=== PATIENT | female | born 1995 | race Two or more races ===

== ENCOUNTER 2018-10-24 20:16 | Emergency (ER) | payer MEDICAID ==
[~2018-10-24] VITALS: Ht 149.9 cm; Wt 57.2 kg
[2018-10-24 20:37] VITALS: BP 113/65
[2018-10-24 20:59] LABS: Urine Bacteria NONE SEEN /hpf (None Seen); Urine Blood Negative /uL (Negative); Urine Mucus FEW (None Seen); Urine Specific Gravity 1.026 (1.001-1.035); Urine WBC 2 /hpf (0 - 5)
[2018-10-24] MEDS ORDERED: cefTRIAXone SOD 1,000 MG VL IM ONE (22:45)
== END 2018-10-24 23:20 | disposition home or self-care (01) ==
LOC: ER 20:20
DX: N39.0 Urinary tract infection, site not specified (principal)
CPT/HCPCS: 81001; 81025; 96372; 99283; J0696

== ENCOUNTER 2019-04-13 09:40 | Day surgery (SDC) | payer MEDICAID ==
[2019-04-10 08:56] LABS: Hemoglobin 9.6 g/dL (12.2-16.2); Nucleated Red Blood Cells % 0.1 %; White Blood Cell 7.8 10^3/uL (4.4-10.8)
[2019-04-10 08:58] LABS: Basophils # (auto) 0.1 uL; Basophils % (auto) 0.7 % (0.0-2.0); Eosinophils # (auto) 0 uL; Eosinophils % (auto) 0.6 % (0.0-7.0); Hematocrit 32.5 % (36.0-46.0); Lymphocytes # (auto) 2.4 uL; Lymphocytes % (auto) 30.4 % (10.0-50.0); Mean Corpuscular Hemoglobin 20.5 pg (28.0-32.0); Mean Corpuscular Hgb Conc. 29.6 g/dL (32.0-36.0); Mean Corpuscular Volume 69.2 fL (80.0-100.0); Monocytes % (auto) 12.4 % (0.0-12.0); Neutrophils # (auto) 4.4 uL; Neutrophils % (auto) 55.9 % (37.0-80.0); Platelet Count (auto) 371 10^3/uL (140-450); Red Cell Distribution Width 18.2 % (11.8-14.3)
[2019-04-10 09:16] LABS: INR 0.93 (0.9-1.15); Partial Thromboplastin Time 23.5 sec (23.64-32.05)
[~2019-04-13] VITALS: Ht 147.3 cm; Wt 59.0 kg
[~2019-04-13 09:40] MED LIST: FLUMAZENIL 0.1 MG/ML INJ 10ML MDV IV ONE; LAMO150T26 PO; LIDOCAINE VISCOUS 2% 15ML UD ONE; NALOXONE HCL 0.4 MG/ML VIAL ONE; PRE5T PO; SIMETHICONE 40 MG/0.6 ML ORAL DROP ONE; SODIUM CHLORIDE LOCK 10 ML ONE; diphenhdrAMINE HCL 50 MG/1 ML VL ONE
[2019-04-13] MEDS: MIDAZOLAM HCL 5 MG/ML-1ML VIAL ONE ×3 (10:01→10:12)
[2019-04-13] MEDS: fentaNYL CITRATE 100 MCG/2 ML VL ONE ×3 (10:01→10:12)
[2019-04-13 11:00] VITALS: BP 107/73
== END 2019-04-13 11:18 | disposition home or self-care (01) ==
LOC: EDUNIT# → SUR 09:40
PROVIDERS: ATTEND Internal Medicine Gastroenterology
DX: Z12.11 Encounter for screening for malignant neoplasm of colon (principal); K29.50 Unspecified chronic gastritis without bleeding; K29.80 Duodenitis without bleeding; K52.89 Other specified noninfective gastroenteritis and colitis; K52.839 Microscopic colitis, unspecified; D64.9 Anemia, unspecified; Z79.899 Other long term (current) drug therapy; Z98.890 Other specified postprocedural states
CPT/HCPCS: 36415; 43239; 45380; 84702; 85025; 85610; 85730; 88305; 88342; J1200; J2250; J3010; J7030; 99152

== ENCOUNTER 2022-04-07 13:16 | Day surgery (SDC) | payer MEDICAID ==
[2022-04-06 10:57] LABS: Basophils # (auto) 0 10 ^3/uL (0-0.2); Basophils % (auto) 0.6 % (0.0-2.0); Eosinophils # (auto) 0.1 10 ^3/uL (0-0.8); Hematocrit 39.8 % (36.0-46.0); Hemoglobin 12.8 g/dL (12.2-16.2); Lymphocytes # (auto) 1.6 10 ^3/uL (0.4-5.4); Lymphocytes % (auto) 26.6 % (10.0-50.0); Mean Corpuscular Hgb Conc. 32.2 g/dL (32.0-36.0); Mean Corpuscular Volume 86.9 fL (80.0-100.0); Monocytes # (auto) 0.6 10 ^3/uL (0-1.3); Neutrophils # (auto) 3.9 10 ^3/uL (1.6-8.6); Neutrophils % (auto) 62.8 % (37.0-80.0); Red Blood Cells 4.58 10^6/uL (4.0-5.20); Red Cell Distribution Width 15.8 % (11.8-14.3); White Blood Cell 6.2 10^3/uL (4.4-10.8)
[2022-04-06 11:17] LABS: INR 0.99 (0.9-1.15); Partial Thromboplastin Time 27.9 sec (23.6-33.0)
[2022-04-06 11:24] LABS: Albumin 3.3 g/dL (3.4-5.0); Calcium 8.2 mg/dL (8.5-10.1); Potassium 4.1 mmol/L (3.5-5.1)
[2022-04-06 11:29] LABS: BUN/Creatinine Ratio 18.3; Bilirubin, Total 0.2 mg/dL (0.2-1.0)
[~2022-04-07] VITALS: Ht 149.9 cm; Wt 68.0 kg
[~2022-04-07 13:16] MED LIST changes: +CHOL400C12 PO; -FLUMAZENIL 0.1 MG/ML INJ 10ML MDV IV ONE; -LAMO150T26 PO; -NALOXONE HCL 0.4 MG/ML VIAL ONE; -PRE5T PO; -SIMETHICONE 40 MG/0.6 ML ORAL DROP ONE; -diphenhdrAMINE HCL 50 MG/1 ML VL ONE
[2022-04-07] MEDS: fentaNYL CITRATE 100 MCG/2 ML VL ONE ×2 (14:02→14:06)
[2022-04-07] MEDS: diphenhdrAMINE HCL 50 MG/1 ML VL ONE ×2 (14:02→14:05)
[2022-04-07] MEDS: MIDAZOLAM HCL 5 MG/ML-1ML VIAL ONE ×2 (14:02→14:06)
[2022-04-07 14:50] VITALS: BP 111/70
== END 2022-04-07 15:29 | disposition home or self-care (01) ==
LOC: GI 13:16
PROVIDERS: ATTEND Internal Medicine Gastroenterology
DX: R10.9 Unspecified abdominal pain (principal); K29.50 Unspecified chronic gastritis without bleeding; K29.90 Gastroduodenitis, unspecified, without bleeding; K44.9 Diaphragmatic hernia without obstruction or gangrene; Z98.890 Other specified postprocedural states; Z87.19 Personal history of other diseases of the digestive system; Z79.899 Other long term (current) drug therapy; Z20.822 Contact with and (suspected) exposure to COVID-19
CPT/HCPCS: 36415; 43239; 80053; 84702; 85025; 85610; 85730; 88305; 88342; J1200; J2250; J3010; J7030; U0003; 99152

== ENCOUNTER → 2022-04-20 | Outpatient (CLI) | payer MEDICAID ==
[~2022-04-20] MED LIST changes: -LIDOCAINE VISCOUS 2% 15ML UD ONE; -SODIUM CHLORIDE LOCK 10 ML ONE
[2022-04-20 10:34] LABS: Urine Bacteria FEW /hpf (None Seen); Urine Blood Negative /uL (Negative); Urine Mucus FEW (None Seen); Urine Specific Gravity 1.023 (1.001-1.035); Urine WBC 2 /hpf (0 - 5)
== END | disposition home or self-care (01) ==
LOC: LAB 10:11
PROVIDERS: ATTEND Nurse Practitioner Family
DX: N39.0 Urinary tract infection, site not specified (principal)
CPT/HCPCS: 81001; 87086

== ENCOUNTER 2022-05-12 11:48 | Outpatient (CLI) | payer MEDICAID ==
[~2022-05-12] VITALS: Ht 149.9 cm; Wt 68.0 kg
[2022-05-12 12:03] LABS: Basophils # (auto) 0 10 ^3/uL (0-0.2); Basophils % (auto) 0.6 % (0.0-2.0); Eosinophils # (auto) 0 10 ^3/uL (0-0.8); Eosinophils % (auto) 0.8 % (0.0-7.0); Hematocrit 38.2 % (36.0-46.0); Hemoglobin 12.4 g/dL (12.2-16.2); Lymphocytes # (auto) 1.7 10 ^3/uL (0.4-5.4); Lymphocytes % (auto) 29.8 % (10.0-50.0); Mean Corpuscular Hgb Conc. 32.5 g/dL (32.0-36.0); Mean Corpuscular Volume 86.3 fL (80.0-100.0); Monocytes # (auto) 0.4 10 ^3/uL (0-1.3); Monocytes % (auto) 7.6 % (0.0-12.0); Neutrophils # (auto) 3.5 10 ^3/uL (1.6-8.6); Neutrophils % (auto) 61.2 % (37.0-80.0); Nucleated Red Blood Cells % 0.1 %; Red Blood Cells 4.42 10^6/uL (4.0-5.20); Red Cell Distribution Width 14.7 % (11.8-14.3); White Blood Cell 5.7 10^3/uL (4.4-10.8)
[2022-05-12 12:19] LABS: INR 0.92 (0.9-1.15); Partial Thromboplastin Time 27.2 sec (24.6-33.4)
[2022-05-12 12:56] LABS: Albumin 3.2 g/dL (3.4-5.0); Calcium 8.5 mg/dL (8.5-10.1)
[2022-05-12 13:02] LABS: BUN/Creatinine Ratio 16.4; Bilirubin, Total 0.4 mg/dL (0.2-1.0)
[2022-05-12] MEDS ORDERED: METF-370 PO (15:36)
== END 2022-05-12 11:57 | disposition home or self-care (01) ==
LOC: LAB 11:48 → EDSTATUS 05-14 06:47
PROVIDERS: ATTEND Internal Medicine Gastroenterology
DX: K52.9 Noninfective gastroenteritis and colitis, unspecified (principal); K51.00 Ulcerative (chronic) pancolitis without complications; Z53.8 Procedure and treatment not carried out for other reasons; Z20.822 Contact with and (suspected) exposure to COVID-19
CPT/HCPCS: 36415; 80053; 85025; 85610; 85730; U0003; 84702

== ENCOUNTER 2023-03-18 06:29 | Inpatient (IN) | payer MEDICAID ==
[~2023-03-18] VITALS: Ht 147.3 cm; Wt 79.4 kg
[~2023-03-18 06:29] MED LIST changes: +METF-370 PO
[2023-03-18] MEDS ORDERED: AZITHROMYCIN 250 MG TAB PO ONE (07:15)
[2023-03-18] MEDS ORDERED: BETAMETHASONE ACET (30mg/5ml) 5ml Vial 6mg/ml IM ONE ×2 (07:15)
[2023-03-18] MEDS ORDERED: MAGNESIUM SULFATE 100 ML IV ONE (07:15)
[2023-03-18] MEDS ORDERED: MAGNESIUM SULFATE 40MG/ML 1,000 ML IV SCH (07:15)
[2023-03-18] MEDS ORDERED: AMPICILLIN SOD 2GM INJ 2 GM in SODIUM CHL 0.9% 100 ML IV ONE (07:15)
[2023-03-18 07:33] LABS: Alcohol, Urine < 3.0 mg/dL (0-10); Amphetamine Screen, Urine NEGATIVE (NEGATIVE); Barbiturate Scree,Urine NEGATIVE (NEGATIVE); Benzodiazephine Screen, Urine NEGATIVE (NEGATIVE); Cannabinoid Screen, Urine NEGATIVE (NEGATIVE); Cocaine Screen, Urine NEGATIVE (NEGATIVE); Opiate Scree,Urine NEGATIVE (NEGATIVE); Phencyclidine Screen, Urine NEGATIVE (NEGATIVE)
[2023-03-18] MEDS ORDERED: LACTATED RINGER'S 1,000 ML IV ONE (07:41)
[2023-03-18 07:53] LABS: Urine Bacteria MOD /hpf (None Seen); Urine Blood Negative /uL (Negative); Urine Mucus FEW (None Seen); Urine Specific Gravity 1.014 (1.001-1.035); Urine WBC 4 /hpf (0 - 5)
== END 2023-03-18 08:11 | disposition short-term general hospital (02) | DRG 566 ==
LOC: LDRP 06:29 → OBSVTOIN 07:04
PROVIDERS: ADMIT Obstetrics & Gynecology; ATTEND Obstetrics & Gynecology
DX: O42.913 Preterm premature rupture of membranes, unspecified as to length of time between rupture and onset of labor, third trimester (principal); Z3A.31 31 weeks gestation of pregnancy
CPT/HCPCS: 59025; 80307; 81001; 81002; 84112; 94760; 96360; 96365; 96372; G0378